=== PATIENT | female | born 1960 | race African-American/Black ===

== ENCOUNTER 2019-04-06 05:32 | Day surgery (SDC) | payer OTHER ==
[2019-04-04 15:31] VITALS: BMI 27.3
[2019-04-06] MEDS ORDERED: PROPOFOL 20 ML ONE (08:47)
[2019-04-06] MEDS ORDERED: ROCURONIUM BROMIDE 50 MG/5 ML SYRINGE ONE (08:47)
[2019-04-06] MEDS ORDERED: DEXAMETHASONE SOD PHOSPHATE 4 MG/1 ML VIAL ONE (08:48)
[2019-04-06] MEDS ORDERED: LIDOCAINE HCL/PF 2% SDV 5ML VIAL ONE (08:48)
--- NOTE | 2019-04-06 09:22 | HP ---
History & Physical Update - History History: No Change - Physical Physical: No Change - Assessment Assessment: No Change - Plan Plan: No Change (Agree with H&P from 04/01/19 - pt with left adnexal cyst, normal Ca 125. Plan for laparoscopic cystectomy vs. oophorectomy vs. BSO)
[2019-04-06] MEDS ORDERED: ACETAMINOPHEN 325 MG TABLET (FP) PO PRN (09:24)
[2019-04-06] MEDS ORDERED: IBUPROFEN 800 MG/8 ML IJ IVPB PRN (09:24)
[2019-04-06] MEDS ORDERED: LACTATED RINGERS SOLUTION 1,000 ML IV SCH (09:30)
[2019-04-06] MEDS ORDERED: BUPIVACAINE HCL/PF 0.5% (5MG/ML) 10 ML VIAL ONE (10:19)
[2019-04-06] MEDS ORDERED: SODIUM CHLORIDE 0.9% P/F 10 ML VIAL IJ ONE (10:21)
[2019-04-06] MEDS ORDERED: MIDAZOLAM HCL 2 MG/2 ML SINGLE DOSE VIAL ONE (10:22)
[2019-04-06] MEDS ORDERED: MAGNESIUM SULF 50% (8.12 MEQ/2 ML-1 GM VIAL) ONE (10:49)
[2019-04-06] MEDS ORDERED: NEOSTIGMINE METHYLSULFATE 0.5 MG/ML - 10 ML MDV ONE (11:06)
[2019-04-06] MEDS ORDERED: GLYCOPYRROLATE 0.2 MG/1 ML VIAL ONE (11:06)
--- NOTE | 2019-04-06 11:37 | OP ---
Operative Note - Note: Operative Date: 04/06/19 Pre-Operative Diagnosis: left adnexal cyst Operation: laparoscopic left paratubal cystectomy and left salpingectomy Findings: normal bilateral ovaries normal right fallopian tubes fibroid uterus Post-Operative Diagnosis: Other (left paratubal cyst) Surgeon: Gay Sandoval Cat Cracker Operator: Cruz Martínez Anesthesiologist/SCOURER: Eleanor Toledo Anesthesia: General Specimens Removed: left fallopian tube, left paratubal cyst Estimated Blood Loss (mls): 5 Operative Report Dictated: Yes
--- NOTE | 2019-04-06 11:49 | SURG ---
Surgery [facility] Note Dean Of Chapel: Cruz Martínez PA-C Date of Service: 04/06/19 Diagnosis: left adnexal cyst Procedure: laparoscopic left paratubal cystectomy and left salpingectomy I was present for the entirety of the operative procedure. For further detail, please refer to operative report. Visit type - Case Type Case Type: Scheduled - Emergency Emergency Visit: No - New patient This patient is new to me today: Yes Date on this admission: 04/06/19 - Critical Care Critical Care patient: No
[2019-04-06] MEDS ORDERED: BUPIVACAINE HCL/PF (5 MG/ML) 30 ML VIAL IJ ONE (11:54)
[2019-04-06] MEDS ORDERED: ONDANSETRON 4 MG/2 ML VIAL IVPUSH PRN (12:04)
[2019-04-06] MEDS ORDERED: oxyCODONE HCL 5 MG TABLET PO PRN (12:04)
[2019-04-06 13:19] VITALS: TEMP 97.3
[2019-04-06 15:34] VITALS: BP 151/95; PULSE 73
--- NOTE | 2019-04-06 17:42 | OP ---
DATE OF OPERATION: 04/06/2019 PREOPERATIVE DIAGNOSIS: Left adnexal cyst, pelvic pain. POSTOPERATIVE DIAGNOSIS: Left paratubal cyst. PROCEDURE: Laparoscopic left paratubal cyst removal, left salpingectomy. SURGEON: Gay Sandoval MD ANESTHESIA: General by Eleanor Toledo MD SAP INTEGRATION ARCHITECT: GLORIA Adler ESTIMATED BLOOD LOSS: 5 mL. COMPLICATIONS: None. SPECIMENS REMOVED: Left paratubal cyst and left fallopian tube. COUNTS: Sponge, needle, instrument count correct. DISPOSITION: Stable to PACU. BRIEF HISTORY AND PROCEDURE: The patient is a 58-year-old female who had been seen in the office with complaints of pelvic pain. Upon ultrasound examination, she was found to have a left adnexal cyst. The patient was counseled on her options, elected to undergo laparoscopic removal of the cyst. The patient was admitted to [facility] on April 06, 2019. Consents for the procedure, which were signed on April 01, 2019, were re-confirmed that date. He was then taken back to the operating room, given general anesthesia and placed in the dorsal lithotomy position. Mcelroy catheter was placed under sterile conditions. She was prepped and draped in the usual sterile fashion and a hard time-out was performed. A 5-mm skin incision was created in the umbilicus and a Veress needle was placed intraabdominally. After confirmation of intraperitoneal placement with the hanging drop test, the CO2 gas was attached and the abdomen insufflated with CO2 gas. A 5-mm trocar was placed in the incision and the camera was inserted, and after confirmation of intraperitoneal access, 2 bilateral lower quadrant ports were placed, a 5 mm in the left lower quadrant and an 11 mm in the right lower quadrant under direct visualization. After inspection of the pelvis, a large left paratubal simple-appearing cyst was appreciated, which was excised intact using the LigaSure device along the mesosalpinx. The left fallopian tube and paratubal cyst were removed in a single specimen. An EndoCatch bag was placed in the right lower quadrant port and the cyst and left fallopian tube were placed into the bag and removed through right lower quadrant port intact. The specimen was then ruptured inside the bag and specimen was removed from the abdominal cavity and sent to Pathology for permanent evaluation. Inspection of the surgical site revealed excellent hemostasis. The uterus was noted to have a subserosal fibroid, otherwise was noted to be normal. Right and left ovaries were noted to be normal and the right fallopian tube appeared to be normal. All intraabdominal contents appeared to be normal otherwise. The right lower quadrant port was closed with a Nitesh-Alma device using 0 Vicryl under direct visualization. The abdomen was then desufflated, the trocars were removed, the skin was reapproximated using 4-0 Biosyn and Dermabond and the patient was awoken from anesthesia in stable condition in the PACU. Sponge, needle, and instrument count was reported to be correct. GAY SANDOVAL DO /[id number]
--- NOTE | 2019-04-07 17:36 | PATH ---
Surgical Pathology Report Patient Name: CARLOS MONTANA [facility]. Rec. #: [id number] /Age/Gender: 1960 (Age: 58) / F Account: [id number] Location: [facility] SURGICAL Taken: 04/06/2019 Received: 04/06/2019 Reported: 04/07/2019 Physicians: Gay Sandoval M.D. Specimen(s) Received LEFT FALLOPIAN TUBE, LEFT PARATUBAL CYST Clinical History Left adnexal cyst, pelvic pain Final Diagnosis FALLOPIAN TUBE AND PARATUBAL CYST, LEFT, SALPINGECTOMY: FALLOPIAN TUBE (INCLUDING FULL LUMINAL PORTION AND FIMBRIATED END) WITH PARATUBAL CYST, 3 CM. Electronically Signed Bindu Mark M.D. Gross Description Received in formalin labeled "left fallopian tube and paratubal cyst," is a 3 cm in length portion of fallopian tube. No fimbria are present. The outer surface is katz-pink and focally disrupted. Sectioning reveals an unremarkable lumen. Separately received within the same container is a 3.0 x 2.0 x 1.1 cm focally disrupted cyst. The outer surface is katz-pink and displays focal attached fimbria. The inner lining of the cyst is smooth. No excrescences are identified. Data Operations Director sections are submitted in 3 cassettes as follows: 1-cross sections of fallopian tube; 2-fimbria attached to cyst; 3-sections of cyst. DL/04/06/2019 saudi/04/06/2019
== END 2019-04-06 16:20 | disposition home or self-care (01) ==
LOC: JASU-SURG 05:32
PROVIDERS: ATTEND Obstetrics & Gynecology
PROC: 0UT64ZZ Resection of Left Fallopian Tube, Percutaneous Endoscopic Approach (ICD-10-PCS; principal; 2019-04-06 10:00)
DX: N83.8 Other noninflammatory disorders of ovary, fallopian tube and broad ligament (principal)
CPT/HCPCS: 36415; 84703; 86850; 86900; 86901; 88302-TC; 94760

== ENCOUNTER 2019-04-21 08:51 | Emergency (ER) | payer OTHER ==
[2019-04-21 08:56] VITALS: BP 156/90; PULSE 89; TEMP 97.8; BMI 27.8
--- NOTE | 2019-04-21 09:15 | PDOC ---
History of Present Illness - General Chief Complaint: Injury Stated Complaint: LT FOOT INJURY Time Seen by Provider: 04/21/19 09:07 History Source: Patient Exam Limitations: No Limitations (L foot injury) Past History - Travel Traveled outside of the country in the last 30 days: No Close contact w/someone who was outside of country & ill: No - Past Medical History Allergies/Adverse Reactions: Allergies Allergy/AdvReac Type Severity Reaction Status Date / Time No Known Allergies Allergy Verified 04/06/19 09:22 Home Medications: Ambulatory Orders Budesonide/Formeterol Fumarate [SYMBICORT 160/4.5mcg -] 2 inh PO BID 04/04/19 Omeprazole 20 mg PO DAILY 04/04/19 Ibuprofen [Motrin -] 600 mg PO QID PRN #28 tablet 04/06/19 Anemia: Yes Asthma: Yes Cancer: No Cardiac Disorders: No CVA: No COPD: No CHF: No Dementia: No Diabetes: No GI Disorders: No Disorders: No HTN: No Hypercholesterolemia: No Liver Disease: No Seizures: No Thyroid Disease: No - Suicide/Smoking/Psychosocial Hx Smoking History: Never smoked Have you smoked in the past 12 months: No Information on smoking cessation initiated: No Hx Alcohol Use: No Drug/Substance Use Hx: No Substance Use Type: None Hx Substance Use Treatment: No Review of Systems - Review of Systems Is the patient limited German proficient: No Constitutional: No: Chills, Fever Musculoskeletal: Yes: Joint Pain (L foot pain). No: Gout, Muscle Weakness *Physical Exam - Vital Signs Last Vital Signs Temp Pulse Resp BP Pulse Ox 97.8 F 89 16 156/90 100 04/21/19 08:53 04/21/19 08:53 04/21/19 08:53 04/21/19 08:53 04/21/19 08:53 - Physical Exam General Appearance: Yes: Nourished Respiratory/Chest: positive: Lungs Clear, Normal Breath Sounds Cardiovascular: positive: Regular Rhythm, Regular Rate, S1, S2 Extremity: positive: Normal Capillary Refill, Normal Range of Motion, Tender (L 5th toe, + ecchymosis noted in lateral aspect of foot,distal pulse intact, stable gait) Neurologic: positive: tellers supervisor II-XII NML intact, Fully Oriented, Alert, Normal Mood/ Affect, Normal Response, Motor Strength / ED Treatment Course - RADIOLOGY Radiology Studies Ordered: Category Date Time Status FOOT-LEFT [RAD] Stat Radiology 04/21/19 09:11 Ordered Medical Decision Making - Medical Decision Making 04/21/19 09:12 Patient is a 58 years old female presents with left foot pain after walking into a wall 2 days ago. Pain is more localized to the fifth digit and lateral aspect of the foot. Patient apply ice doing time of incident reports that they are there was some discoloration of the foot she is here for an evaluation to rule out an fracture. Examination consist of tenderness in the fifth toe. Distal pulses intact her gait is stable X-rays obtained offered pain medication patient refused reports that she took something this morning Disposition is pending 04/21/19 09:46 prelim xray negative for fx toe budding taped to the neighboring toe motrin for pain podiatry f/u if pain persist 04/21/19 09:57 *DC/Admit/Observation/Transfer Diagnosis at time of Disposition: Foot pain, left - Discharge Dispostion Disposition: HOME Condition at time of disposition: Stable Decision to Admit order: No - Referrals Referrals: Thai Acosta MD [Staff Physician] - Ry Frances MD [Staff Physician] - - Patient Instructions Additional Instructions: Your foot xray was negative for acute fracture please take motrin for pain follow up with podiatry clinic if pain persist more than 2 weeks Return to the ER If worsening symptoms occurs - Post Discharge Activity
== END 2019-04-21 09:53 | disposition home or self-care (01) ==
LOC: JERFT 08:51
DX: M79.672 Pain in left foot (principal); W22.01XA Walked into wall, initial encounter; Y93.01 Activity, walking, marching and hiking; Y92.9 Unspecified place or not applicable
CPT/HCPCS: 73630-TC-LT; 99281-25